=== PATIENT | male | born 2000 | race Caucasian/White ===

== ENCOUNTER → 2018-04-20 | Outpatient (CLI) | payer OTHER ==
--- NOTE | 2018-04-20 13:06 | RAD ---
PQRS Compliance statement: One or more of the following individualized dose reduction techniques were utilized for this examination: 1. Automated exposure control. 2. Adjustment of the mA and/or kV according to patient size. 3. Use of iterative reconstruction technique. Indication:HX asthma. Uses inhaler less frequently in the last year.URI, cough X two weeks.No surgery to chest.Pt shielded TECHNIQUE: CT chest without IV contrast with multiplanar reformats. COMPARISON:None FINDINGS: Heart is normal in size. No pericardial or pleural effusion. No enlarged axillary or mediastinal lymph nodes. Evaluation of hilar lymphadenopathy is limited due to lack of IV contrast. Central airways are patent. Lungs are clear of any focal consolidation or interstitial abnormality is. No emphysematous changes. Noncontrast appearance of the visualized sections through the liver, spleen, adrenals, pancreas and kidneys within normal limits. No suspicious bony lesion. IMPRESSION: No acute findings. No evidence of emphysema. Electronically signed by: Tanner Rodriguez DO (04/20/2018 1:02 PM) [facility]
== END | disposition home or self-care (01) ==
LOC: CT 11:41
PROVIDERS: ATTEND Physician Assistant Medical
DX: J06.9 Acute upper respiratory infection, unspecified (principal)
CPT/HCPCS: 71250